=== PATIENT | male | born 1990 | race Caucasian/White ===

== ENCOUNTER 2016-07-25 17:43 | Emergency (ER) | payer OTHER ==
[2016-07-25 17:59] VITALS: RESP 18; TEMP 97
--- NOTE | 2016-07-25 20:32 | DI ---
RIGHT ANKLE, 07/25/2016 6:14 PM: Clinical History: Trauma. Previous Exam: None at this facility. 3 views are submitted. There is substantial soft tissue swelling over the lateral malleolus. On the A P projection, there is cortical irregularity along the lateral margin of the talus at the attachment of the talofibular ligaments. A similar cortical irregularity is present along the medial margin of t he talus at the approximate insertion of the deep deltoid ligament. An avulsion injury or injury to t he talofibular ligaments or the deltoid ligament cannot be excluded. The ankle mortise is intact. The re is a small anterior ankle effusion. Reading: There may be avulsion injuries at the attachment sites on the talus of the talofibular ligaments and the deep deltoid ligament. The ankle mortise is intact. No major fracture is identified.
--- NOTE | 2016-07-25 20:49 | PDOC ---
Foot / Ankle Injury - General Chief Complaint: Lower Extremity Problem/Injury Stated Complaint: ANKLE PAIN TODAY; SPRAINED ANKLE 6 DAYS AGO Date Seen by Provider: 07/25/16 Time Seen by Provider: 18:01 Source: POSITIVE: Patient, EMS Exam Limitations: POSITIVE: No limitations Nurse's Notes Reviewed & Considered: Yes EMS Report Reviewed & Considered: Verbal - History of Present Illness Initial Comments: The patient is a 27 year old male. He states that 6 days ago he stumbled as he was descending some steps and fell. He injured his right ankle. He was seen and evaluated at the emergency room at [facility] and patient states that his x-rays did not show any fractures. He states he had considerable swelling at the time. His ankle was immobilized in a sugar tong splint and he was given crutches and was advised to bear no weight on the involved extremity. He had an appointment with orthopedics at [facility] for yesterday, but the patient states that he presently lives in [place] and hence did not keep his appointment with his orthopedist in [place]. He states that he has noticed the development of considerable ecchymosis to the distal aspect of his foot and he is quite concerned about this. He also states he has continued pain to the medial and lateral aspects of his ankle, medial greater than lateral. History of bipolar disease for which he takes lithium. Sensation to his toes are good and need denies any sensory or motor symptoms. He denies any other injuries due to his fall 6 days ago. Have you received a tetanus shot in the past 10 years?: Yes Location: Right Ankle Timing: REPORTS: Abrupt Duration: <1 week (6 days ago) Severity: Moderate Quality: REPORTS: "Pain" (right ankle) Location at Time of Onset: REPORTS: Home Context: REPORTS: Fall, Twist Modifying Factors: REPORTS: Movement Associated Symptoms: DENIES: Tingling Distally, Numbness Distally, Swelling, Snapping Sensation, Popping Sensation, Other Any Prior Injuries Related to Current Complaint?: No - Patient Allergies Allergies/Adverse Reactions: Allergies Allergy/AdvReac Type Severity Reaction Status Date / Time codeine Allergy HIVES Verified 07/25/16 17:41 Penicillins Allergy HIVES Verified 07/25/16 17:41 - Patient Home Medications Home Medications: Home Medications [place] Carbonate [[place] Carbonate Er] 300 mg PO BID #60 tab 05/05/16 HYDROcodone/APAP 10/325 Tab [Turin 10/325 Tab] 1 tab PO Q6H PRN #20 tab Past Medical History - heen HEENT History: Other (please comment) Additional HEENT History: Glasses Cardiovascular History: Hypertension, Other (please comment) Additional Cardiovasular History: 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 PT REPORTS SEIZURE "NEW YEARS OF 2014, ALCOHOL RELATED" Blood Disorders: Denies History Psychiatric History: Depression, Bi Polar Disorder, ADHD History of Sexually Transmitted Diseases: No Male Reproductive History: Denies History Cancer History: Denies History In Past Year Been Physically Harmed or Verbally Threatened: No History of MDRO: No History of Other Communicable Diseases: No Tobacco Use: Unknown If Ever Smoked Alcohol Use: Rarely Substance Use Type: Marijuana, Methamphetamines Previous Surgical History: Yes Type / Date of Surgery: HERNIA REPAIR A CHILD Anesthesia Reactions: No Malignant Hyperthermia: No Significant Family History: No pertinent family hx Past Medical History Reviewed: Reviewed - No Changes ROS - Limitations ROS Limitations: No Limitations Constitution: REPORTS: Denies Symptoms Cardiovascular: REPORTS: Denies Cardiac Symptoms Respiratory: REPORTS: Denies Resp Symptoms Neurological: REPORTS: Denies Neuro Symptoms Gastrointestinal: REPORTS: Denies GI Symptoms Endocrine: REPORTS: Denies Symptoms Musculoskeletal: REPORTS: Joint Pain (Right ankle), Recent Injury (Injured right ankle 6 days ago as above) Genitourinary: REPORTS: Denies Symptoms Eyes: REPORTS: Denies Symptoms ENT: REPORTS: Denies Symptoms Skin: REPORTS: Denies Skin Symptoms Lympathic: REPORTS: Denies Lympathic Symptoms Immunologic: POSITIVE: Denies Symptoms Psychiatric: POSITIVE: Denies Psych Symptoms Foot / Ankle Exam - General Appearance General Appearance: POSITIVE: Alert, Cooperative, No Acute Distress. NEGATIVE: No Evidence of Trauma (ecchymosis and swelling right ankle; see diagram) - Extremities Foot: POSITIVE: Non-Tender, Ecchymosis (ecchymosis dorsum of foot distally). NEGATIVE: Soft Tissue Tenderness, Bony Tenderness Ankle: POSITIVE: Normal ROM, Stable, Soft-Tissue Tenderness, Bony Tenderness, Swelling, Ecchymosis, See Diagram. NEGATIVE: Limited ROM, Deformity, Ligamentous Instability Gait: POSITIVE: Gait not Tested d/t Pain (gait not tested) Neuro: POSITIVE: Sensation Normal, Motor Normal Vascular: POSITIVE: No Vascular Compromise, Full Pulses, Equal Pulses Tendons: POSITIVE: Tendon Function Normal Skin: POSITIVE: Warm, Dry - Neck / Back Neck / Back: Normal Inspection - Respiratory / CVS Respiratory / CVS: POSITIVE: Chest Non-Tender, No Respiratory Distress, Heart Sounds Normal, Regular Rate/Rhythm, Breath Sounds Normal Peripheral Pulses: Radial (R): 2+, Radial (L): 2+, Dorsalis-pedis (R): 2+, Dorsalis-pedis (L): 2+ Images - Lower Extremities Lower Extremities: 1 - Ecchymosis and some swelling and tenderness on palpation 2 - Ecchymosis has some swelling and tenderness on palpation 3 - Ecchymosis Procedures - Splinting Time Splint Applied: 18:15 Location: Cam Walker right leg Pre-Proc Neuro Vasc Exam: Normal Splint Type: CAM Walker (Cam Walker applied; patient already has crutches) Splint Form: Short Extremity Applied By:: Nurse Post-Proc Neuro Vasc Exam: Normal Foot / Ankle Progress - Results Reviewed by me Pain Medication Addressed: POSITIVE: Yes (hydrocodone/APAP) School/Work Release Addressed: POSITIVE: Not Applicable (patient unemployed; patient advised to stay off leg pinning orthopedic evaluation) Xrays/CTs/US Reviewed by me: Yes Discussed with Radiologist: No Radiology Results: POSITIVE: Right, Ankle, Normal Radiology Findings: X-ray of right ankle shows no fractures or dislocations by my interpretation; radiologist interpretation pending. - Patient's Progress Re-Examine Time:: 18:30 Re-Examine Comment: Patient tolerating cam walker well Status: POSITIVE: Improved, Re-Examined - Consult Counseled: POSITIVE: Patient, RE: Radiology Results, RE: DX, RE: Need for F/U Patient Care Time - Estimated PCT Patient Care Time (In Minutes): 25 Vital Signs - Recent Vital Signs Vital Signs: Vital Signs (Last 8 hours) Temp Pulse Resp BP Pulse Ox 07/25/16 17:43 97.0 F 85 18 146/117 95 - VS Reviewed Vital Signs Reviewed: Yes Discharge Clinical Impression: Sprain of ankle Discharge Disposition: Discharged to Home Condition: Stable Prescriptions / Orders: HYDROcodone/APAP 10/325 Tab [Turin 10/325 Tab] 1 tab PO Q6H PRN #20 tab PRN Reason: Pain Patient Instructions Given at Discharge: Ankle Sprain (ED) Additional Instructions: I see no fractures on your x-ray. However, judging from the amount of bruising you have about sure ankle, I suspect that you have a significant ligamentous injury. I would like you to follow-up in the orthopedic clinic in the next few days. You have been fitted with a cam walker. Please wear this device and use your crutches and bear no weight on your injured extremity. Hydrocodone/APAP, one every 6 hours as necessary for pain. Return anytime if condition worsens in any way. Follow-up in orthopedic clinic as soon as possible. Follow Up With: ESPERANZA PIERSON [Primary Care Provider] - (Instructions as above. Follow-up in the orthopedic clinic as above. Return here anytime as necessary.)
== END 2016-07-25 18:50 | disposition home or self-care (01) ==
LOC: ER 17:43
DX: S93.401A Sprain of unspecified ligament of right ankle, initial encounter (principal); W10.8XXA Fall (on) (from) other stairs and steps, initial encounter
CPT/HCPCS: 73610; 99282